=== PATIENT | male | born 1960 | race Caucasian/White ===

== ENCOUNTER 2025-08-17 17:56 | Emergency (ER) | payer MEDICAID, MEDICARE | END 2025-08-17 20:10 | LOC: JD.ED 17:56 | DX: S86.911A Strain of unspecified muscle(s) and tendon(s) at lower leg level, right leg, initial encounter (principal); Z88.0 Allergy status to penicillin; Z88.5 Allergy status to narcotic agent; Z79.899 Other long term (current) drug therapy; Z87.891 Personal history of nicotine dependence; X50.1XXA Overexertion from prolonged static or awkward postures, initial encounter; Y93.89 Activity, other specified | CPT/HCPCS: 73564-26-RT; 73564-RT; 99283 ==